=== PATIENT | male | born 1985 | race African-American/Black ===

== ENCOUNTER 2018-08-02 15:14 | Emergency (ER) | payer SELFPAY ==
[2018-08-02] MEDS ORDERED: Fluorescein Opthalmic Strip ONE (15:58)
[2018-08-02] MEDS ORDERED: Proparacaine 0.5% Opth 15 ML BOT ONE (15:58)
== END 2018-08-02 16:58 | disposition home or self-care (01) ==
LOC: ERS 15:14
DX: H10.9 Unspecified conjunctivitis (principal); F41.9 Anxiety disorder, unspecified; F32.9 Major depressive disorder, single episode, unspecified
CPT/HCPCS: 99283

== ENCOUNTER 2018-08-05 19:32 | Emergency (ER) | payer SELFPAY ==
[2018-08-05] MEDS ORDERED: Proparacaine 0.5% Opth 15 ML BOT ONE (20:00)
[2018-08-05] MEDS ORDERED: Lidocaine 1% PF 5 ML VIAL ONE (20:00)
[2018-08-05] MEDS ORDERED: cefTRIAXone\\ROCEPHIN 1 GM VIAL ONE (20:00)
== END 2018-08-05 20:27 | disposition home or self-care (01) ==
LOC: ERS 19:32
DX: H10.9 Unspecified conjunctivitis (principal); L03.213 Periorbital cellulitis
CPT/HCPCS: 96372; J0696; J2001

== ENCOUNTER 2019-03-04 20:21 | Emergency (ER) | payer SELFPAY ==
[~2019-03-04 20:21] MED LIST: ISOVUE-370 76%-LOCM 1 ML ONE
[2019-03-04] MEDS ORDERED: Fluorescein Opthalmic Strip ONE (22:22)
[2019-03-04] MEDS ORDERED: Proparacaine 0.5% Opth 15 ML BOT ONE (22:22)
[2019-03-04 23:13] LABS: #Basophils 0.1 thou/uL (0.0-0.2); #Eosinphils 0.1 thou/uL (0.0-0.7); #Lymphocytes 2.8 thou/uL (1.20-3.40); #Monocytes 0.5 thou/uL (0.11-0.59); #Neutrophils 2.5 thou/uL (1.40-6.50); %Basophils 1.1 % (0.0-1.0); %Monocytes 7.8 % (0.0-10.0); %Neutrophils 42.1 % (42.0-75.0); Hemoglobin 17.2 g/dL (14.0-18.0); Mean Corpuscular HGB CONC 34.7 g/dL (32.0-36.0); Mean Corpuscular Hemoglobin 30.5 pg (27.0-31.0); Mean Corpuscular Volume 87.8 fL (78.0-98.0); Mean Platelet Volume 8.7 fL (7.4-10.4); Platelet Count 245 thou/uL (130-400); RBC Distribution Width 11.8 % (11.5-14.5); Red Blood Cell (RBC) Count 5.64 mill/uL (4.70-6.10); White Blood Cell (WBC) Count 5.9 thou/uL (4.8-10.8)
--- NOTE | 2019-03-04 23:24 | CT ---
Exam: Postcontrast ORBIT CT HISTORY: Pain and inability to open the right eye. Sensitivity to light. FINDINGS: Visualized brain parenchyma is unremarkable. Bilateral ocular lenses are normally located. Both globes are intact. Retrobulbar fat is preserved an d symmetric. Symmetric attenuation of the optic nerves and ocular rectus muscles. Visualized aerodigestive tract is patent. Limited evaluation due to dental amalgam artifact. No evidence of a maxillofacial fracture. Mild mucosal disease involving the right maxillary and left maxillary sinus. Coronal images demonstra te abnormal soft tissue attenuation of the right ostiomeatal complex. The osseous margins of the orbits are patent. IMPRESSION: 1. Symmetric attenuation of the orbits. No evidence of a periorbital abscess. 2. Right maxillary sinus disease with abnormal soft tissue attenuation of the right ostiomeatal compl ex. Transcribed Date/Time: 03/04/2019 11:28 PM
[2019-03-04 23:33] LABS: ALT (SGPT) 32 U/L (8-55); AST (SGOT) 21 U/L (5-34); Albumin 4.8 g/dL (3.5-5.0); Alkaline Phosphatase 75 U/L (40-150); Anion Gap 12 mmol/L (10-20); BUN (Urea Nitrogen) 10 mg/dL (8.9-20.6); Bilirubin, Total 0.5 mg/dL (0.2-1.2); Calc. Creatinine Clearance 0 mL/min (70-130); Carbon Dioxide 29 mmol/L (22-29); Chloride 101 mmol/L (98-107); Estimated GFR-MDRD 90; Globulin 4.2 g/dL (2.4-3.5); Glucose 84 mg/dL (70-105); Potassium 4.1 mmol/L (3.5-5.1); Sodium 138 mmol/L (136-145)
[2019-03-05] MEDS ORDERED: Morphine 4 MG/ML VIAL ONE
== END 2019-03-05 00:21 | disposition short-term general hospital (02) ==
LOC: ERS 20:21
DX: H16.032 Corneal ulcer with hypopyon, left eye (principal); F41.9 Anxiety disorder, unspecified; F32.9 Major depressive disorder, single episode, unspecified; Z79.899 Other long term (current) drug therapy
CPT/HCPCS: 70481; 80053; 85025; 96374; J2270; Q9966